=== PATIENT | male | born 1945 | race Caucasian/White ===

== ENCOUNTER 2018-03-12 11:30 | Outpatient (CLI) ==
[2016-03-05 05:16] VITALS: BMI 27.2
--- NOTE | 2018-03-12 13:07 | DI ---
EXAM: CHEST FRONTAL AND LATERAL VIEWS HISTORY: Cough. COMPARISON: None FINDINGS: Heart size is within normal limits. Sternotomy wires are present. Mild hyperinflation. N o acute infiltrates are seen. No vascular congestion. There is no consolidation, visible pleural fl uid or pneumothorax. Bones reveal no acute fracture. IMPRESSION: No acute cardiopulmonary process.
== END 2018-03-12 11:31 | disposition home or self-care (01) ==
LOC: RAD 11:30
PROVIDERS: ATTEND Family Medicine
DX: R05 Cough (principal)